=== PATIENT | female | born 1945 | race Caucasian/White ===

== ENCOUNTER 2022-08-29 15:43 | Day surgery (SDC) | payer MEDICARE ==
[2022-08-29] MEDS ORDERED: Depo-Medrol 40 MG/ML IM ONE (15:44)
[2022-08-29] MEDS ORDERED: BUPIVACAINE 0.5% VIAL IJ ONE (15:44)
[2022-08-29] MEDS ORDERED: LIDOCAINE HCL 1% 50 MG/5 ML VL PF IJ ONE (15:44)
--- NOTE | 2022-08-29 18:44 | XRAY ---
Indication: Left SI joint injection. Intraoperative fluoroscopy provided for 17 seconds. 2 digital spot image submitted for interpretation demonstrates posterior needle tip projecting over the left SI joint. Correlate with intraoperative findings/report.
--- NOTE | 2022-08-29 18:48 | XRAY ---
17 seconds of fluoroscopy was used in surgery for a left SI joint injection.
== END 2022-08-29 18:15 | disposition home or self-care (01) ==
LOC: SDC-PAIN 15:43
PROVIDERS: ATTEND Psychiatry & Neurology Pain Medicine
DX: M46.1 Sacroiliitis, not elsewhere classified (principal); Z79.899 Other long term (current) drug therapy
CPT/HCPCS: 27096; 72170; 77002; G0260; J1030; J2001

== ENCOUNTER 2023-04-18 13:01 | Day surgery (SDC) | payer MEDICARE ==
[2023-04-18] MEDS ORDERED: Decadron 4 MG INJ IV ONE (13:02)
[2023-04-18] MEDS ORDERED: Sodium Chloride 0.9(Preservative Free) 10 ML IJ ONE (13:02)
[2023-04-18] MEDS ORDERED: DIPRIVAN 200 MG/20 ML IV ONE (14:26)
[2023-04-18] MEDS ORDERED: Lactated Ringers 1,000 ML IV ONE (16:29)
--- NOTE | 2023-04-18 16:53 | XRAY ---
53 seconds of fluoroscopy was used in surgery for a left L2-L4 transforaminal MAI.
--- NOTE | 2023-04-19 09:58 | XRAY ---
53 seconds of fluoroscopy was used in surgery for a left L2-L4 transforaminal MAI.
== END 2023-04-18 15:00 | disposition home or self-care (01) ==
LOC: SDC-PAIN 13:01
PROVIDERS: ATTEND Psychiatry & Neurology Pain Medicine
DX: M54.16 Radiculopathy, lumbar region (principal)
CPT/HCPCS: 64483; 64484; 72100; 77003; J1100; J2704; Q9966